=== PATIENT | female | born 1970 | race Caucasian/White ===

== ENCOUNTER 2023-02-26 20:23 | Emergency (ER) | payer OTHER ==
[~2023-02-26] VITALS: Ht 172.7 cm; Wt 62.6 kg
[2023-02-26 20:56] VITALS: BP_SYST 140; PULSE 73; RESP 20; TEMP 98.6; O2SAT 99
[2023-02-26] MEDS ORDERED: IBUPROFEN 600 MG TABLET PO ONE (22:45)
[2023-02-26] MEDS ORDERED: NAPR-1172 PO (22:47)
[2023-02-26 22:58] VITALS: BP_SYST 140; PULSE 73; RESP 20; TEMP 98.6; O2SAT 99
== END 2023-02-26 22:58 | disposition home or self-care (01) ==
LOC: SED 20:23
DX: S13.4XXA Sprain of ligaments of cervical spine, initial encounter (principal); S33.5XXA Sprain of ligaments of lumbar spine, initial encounter; S83.91XA Sprain of unspecified site of right knee, initial encounter; Z79.899 Other long term (current) drug therapy; V89.2XXA Person injured in unspecified motor-vehicle accident, traffic, initial encounter; Y93.89 Activity, other specified; Y92.89 Other specified places as the place of occurrence of the external cause; Y99.8 Other external cause status
CPT/HCPCS: 72040-TC; 72100-TC; 73560-TC; 99284